=== PATIENT | male | born 2005 | race Caucasian/White ===

== ENCOUNTER 2024-10-12 14:27 | Emergency (ER) | payer OTHER, SELFPAY ==
[2024-10-12 14:40] VITALS: BP 123/78; PULSE 90; RESP 16; TEMP 37.1; O2SAT 100
--- NOTE | 2024-10-12 15:38 | ED.GENADULT ---
HPI - General Adult General Chief complaint: Unspecified Stated complaint: throat feels obstructed Time Seen by Provider: 10/12/24 15:15 Source: patient and RN notes reviewed Mode of arrival: ambulatory Limitations: no limitations History of Present Illness HPI narrative: 19-year-old male presents Express Care with father complaining of excessive belching and feeling like something is stuck in his throat. Patient has a history of autism and is unable to fully communicate his symptoms well. Per the patient he reports that his symptoms have been going on over the last 2 months. He states that he is burping a lot. Sometimes when he burps he feels like food comes up into the back of his throat. He is unsure if it is while he is eating or if it is all the time. He states that sometimes he feels like something is stuck in his throat but that symptom comes and goes. Patient states he can swallow food or liquids without issue. Patient is having normal bowel movements. He denies any vomiting, nausea, diarrhea, heartburn, decreased appetite, abdominal pain, difficulty breathing, difficulty swallowing, or recent weight loss. He denies any upper respiratory symptoms. Father states patient does not take any daily medications. Related Data Allergies Allergy/AdvReac Type Severity Reaction Status Date / Time No Known Allergies Allergy Verified 10/12/24 14:40 Review of Systems Review of Systems: CONSTITUTIONAL: Denies fever, chills, poor appetite, or sweats. EYES: Denies visual changes, redness, or discharge. ENT: Denies rhinorrhea, congestion, sore throat, dysphagia or otalgia. CARDIOVASCULAR: Denies chest pain, palpitations, or edema. RESPIRATORY: Denies cough or dyspnea. GASTROINTESTINAL: Denies abdominal pain, nausea, vomiting, constipation, or diarrhea. Positive for excessive belching and globus sensation. GENITOURINARY: Denies dysuria or hematuria. SKIN: Denies rash or itching. MUSCULOSKELETAL: Denies back pain, joint pain, or myalgia. NEUROLOGIC: Denies headache, numbness, or weakness. PSYCHIATRIC: Denies anxiety or depression. All other systems reviewed are negative, except as documented in HPI. [facility] Social History Social History Smoking status: Never smoker Second hand tobacco smoke exposure: No Alcohol intake: never Substance use: never Comments At the time of my signature, I reviewed and agree with the nursing past medical, surgical, social, and family history. There is no relevant family history pertinent to the patient complaint. Exam Narrative: GENERAL: This is a well-nourished, well-developed adult, in no apparent distress. They are non ill-appearing, nontoxic appearing. HEAD: normocephalic, atraumatic. EYES: Sclera clear/white. Vision is grossly intact. EARS: External ears normal, auditory canals clear and without drainage, TMs normal without perforation. Hearing grossly intact. NOSE: External nose normal with no obvious nasal discharge, nares without redness, no rhinorrhea. THROAT: Mucous membranes moist, posterior pharynx clear. NECK: Neck supple, non-tender without lymphadenopathy, masses or thyromegaly. CARDIOVASCULAR: Regular rate and rhythm without murmurs, gallops, or rubs. RESPIRATORY: Clear to auscultation. Breath sounds equal bilaterally. No wheezes, rales, or rhonchi. GASTROINTESTINAL: Abdomen soft, non-tender, nondistended. Bowel sounds are active. No hepato-splenomegaly, or palpable masses. No guarding. SKIN: warm, Dry, intact with no suspicious lesions or rash, good texture and turgor. NEURO: awake, alert, and oriented to person, place and time. There were no obvious focal neurologic abnormalities. EXTREMITIES: No joint tenderness, effusion, or edema noted. BACK: Nontender without deformity. No CVA tenderness. Course Course Level of Care: Express Care Visit Vital Signs Vital signs: Vital Signs Temperature 98.7 F 10/12/24 14:40 Pulse Rate 90 10/12/24 14:40 Respiratory Rate 16 10/12/24 14:40 Blood Pressure 123/78 10/12/24 14:40 Pulse Oximetry 100 10/12/24 14:40 Temperature 98.7 F 10/12/24 14:40 Pulse Rate 90 10/12/24 14:40 Respiratory Rate 16 10/12/24 14:40 Blood Pressure 123/78 10/12/24 14:40 Pulse Oximetry 100 10/12/24 14:40 Reviewed Medical Decision Making Vital Signs Vital Signs: Vital Signs Temperature 98.7 F 10/12/24 14:40 Pulse Rate 90 10/12/24 14:40 Respiratory Rate 16 10/12/24 14:40 Blood Pressure 123/78 10/12/24 14:40 Pulse Oximetry 100 10/12/24 14:40 Temperature 98.7 F 10/12/24 14:40 Pulse Rate 90 10/12/24 14:40 Respiratory Rate 16 10/12/24 14:40 Blood Pressure 123/78 10/12/24 14:40 Pulse Oximetry 100 10/12/24 14:40 Critical Care Time Critical Care Time Critical Care Time: No Discharge Plan Discharge Clinical Impression: Belching Acid reflux Qualifiers: Esophagitis presence: esophagitis presence not specified Qualified Code(s): K21.9 - Gastro-esophageal reflux disease without esophagitis Patient Disposition: Home Condition: Stable Instructions: GERD (Gastroesophageal Reflux Disease) (ED) Additional Instructions: Please take Pepcid as directed. You may take Tums as needed for heartburn. Your symptoms may be coming from acid reflux disease. Please try the Pepcid for at least 2-4 weeks to see if your symptoms get better. Please follow-up with your primary care provider for further evaluation and management. If you are unable to keep any food down, developed difficulty breathing or any other concerns please go to the ER immediately. You may need to follow-up with GI if symptoms persist. A GI specialist was provided if needed. Patient Language: Albanian Prescriptions: New famotidine [Pepcid] 20 mg tablet 20 mg PO BID 30 Days Qty: 60 0RF Follow-up/Referrals: David Spears MD [Primary Care Provider] - Ronnie Pavon MD [Physician] - Time of Disposition: 15:21
== END 2024-10-12 15:26 | disposition home or self-care (01) ==
PROVIDERS: PCP Pediatrics
DX: R14.2 Eructation (principal); K21.9 Gastro-esophageal reflux disease without esophagitis; F84.0 Autistic disorder
CPT/HCPCS: 99213; G0463